=== PATIENT | male | born 1965 ===

== ENCOUNTER 2024-03-15 12:55 | Emergency (ER) | payer SELFPAY ==
[~2024-03-15] VITALS: Ht 180.3 cm; Wt 70.5 kg
[2024-03-15 13:54] VITALS: BP 134/80; PULSE 92; RESP 17; TEMP 96.5; O2SAT 98
[2024-03-15 14:20] LABS: BASOPHILS % (AUTO) 2.2 % (0.0-2.0); EOSINOPHILS % (AUTO) 2.4 % (1.0-6.0); HEMATOCRIT 37.6 % (41-53); HEMOGLOBIN 12.3 g/dL (13.5-17.5); LYMPHOCYTES % (AUTO) 50.5 % (22.0-44.0); MEAN CORPUSCULAR HGB CONC 32.6 G/dL (31.0-37.0); MEAN CORPUSCULAR VOLUME 98 fL (80-100); MONOCYTES # (AUTO) 0.3 K/uL (0.1-1.0); MONOCYTES % (AUTO) 7.3 % (2.0-9.0); NEUTROPHILS # (AUTO) 1.5 K/uL (1.8-7.7); NEUTROPHILS % (AUTO) 37.6 % (40.0-70.0); PLATELET COUNT (AUTO) 194 K/uL (150-450); RED BLOOD CELL COUNT(AUTO) 3.84 MIL/uL (4.50-5.90); RED CELL DISTRIBUTION WIDTH 12.8 % (11.5-14.5)
[2024-03-15 14:34] LABS: ANION GAP 12 mmol/L (8-16); CALCIUM, TOTAL 8.3 mg/dL (8.8-10.5); CARBON DIOXIDE 24 mmol/L (22-29); CHLORIDE 98 mmol/L (98-107); CREATININE 0.78 mg/dL (0.60-1.30); GLOMERULAR FILTR. RATE CALC > 60 mL/min (>60); GLUCOSE,RANDOM 95 mg/dL (70-110); POTASSIUM 3.4 mmol/L (3.5-5.1); SODIUM SERUM 134 mmol/L (136-145); UREA NITROGEN, BLOOD 4 mg/dL (7-18)
[2024-03-15 14:48] LABS: TROPONIN I-HIGH SENSITIVITY 24 ng/L (<76)
[2024-03-15 15:12] LABS: ALCOHOL, BLOOD (SERUM) 357 mg/dL (0-10)
== END 2024-03-15 14:42 | disposition home or self-care (01) ==
LOC: EMS 13:02
DX: F10.129 Alcohol abuse with intoxication, unspecified (principal); M25.522 Pain in left elbow; Y90.9 Presence of alcohol in blood, level not specified
CPT/HCPCS: 99283; 80048; 84484; 85025; 36415; G0480